=== PATIENT | male | born 1950 | race Caucasian/White ===

== ENCOUNTER 2020-09-06 21:35 | Emergency (ER) | payer MEDICARE, OTHER ==
[2020-09-06 21:46] VITALS: BP 229/120
--- NOTE | 2020-09-06 22:05 | ER Document Report ---
ED Medical Screen (RME) - General Chief Complaint: Urinary Retention Stated Complaint: UNABLE TO URINATE Time Seen by Provider: 09/06/20 21:53 Notes: HPI; 69-year-old male presents to the emergency room with urinary retention for the past 4 to 5 hours. Patient states he has had a history of retention in the past but has not had any issues for several years. Does have BPH and currently on 2 prostate medications. Denies any fevers. No nausea, no vomiting. Denies any abdominal pain. PE: Alert and oriented x3. Lungs: Clear to auscultation without rales, rhonchi, wheezes. Heart: Tachycardic without murmurs, rubs, gallops. Patient is hypertensive and tachycardic states he did take his blood pressure medications today. Charge nurse notified will be taken back as soon as possible. I have greeted and performed a rapid initial assessment of this patient. A comprehensive ED assessment and evaluation of the patient, analysis of test results and completion of the medical decision making process will be conducted by additional ED providers. I have specifically instructed the patient or family members with the patient to immediately return to any nursing staff should anything change in the patient's condition or with their chief complaint. TRAVEL OUTSIDE OF THE [place] IN LAST 30 DAYS: No - Related Data Home Medications: bp med/diuretic, proscar, flomax, Physical Exam - Vital signs Vitals: Temp Pulse Resp BP Pulse Ox 98 F 126 H 20 229/120 H 97 09/06/20 21:44 09/06/20 21:44 09/06/20 21:44 09/06/20 21:44 09/06/20 21:44 Course - Vital Signs Vital signs: Temp Pulse Resp BP Pulse Ox 98 F 126 H 20 229/120 H 97 09/06/20 21:44 09/06/20 21:44 09/06/20 21:44 09/06/20 21:44 09/06/20 21:44
--- NOTE | 2020-09-06 22:20 | ER Document Report ---
ED GI/ - General Chief Complaint: Urinary Retention Stated Complaint: UNABLE TO URINATE Time Seen by Provider: 09/06/20 21:53 Mode of Arrival: Ambulatory Information source: Patient, Relative - Notes: 09/06/20 21:54 - ED Nursing Note by GREGOR GALLOWAY Num: [id number] : 1950 Patient Age: 69 pt has hx of urinary retention x2 in the past. tonight last voided 5-6 hrs ago. pt unable to sit, bp elevated., unable to get comfortable. MY NOTES 69-year-old male arrives with his with chief complaint of having acute urinary retention for the last 5 to 6 hours. Patient reports in the past he has had to have a Goins catheter per Dr. Marquis his urologist. Also he had the same problem when they lived in [place]. Patient is a non-smoker but does drink wine and bourbon. Patient denies any diarrhea constipation chest pain diaphoresis but does admit to suprapubic pain. He denies any penile discharge or hematuria. He does admit to BPH in the past. He has had a TURP in the past according to . Attempts at Goins catheter and coud catheter were unsuccessful by [employer] switch technician. She then attempted a pediatric feeding tube 8 [place] polyurethane Kangaroo and was successful with slow drainage of urine. @1300 mls. Patient felt much improved after this. This occurred around 2320 patient sent home with condom cath surrounding the tube as well as pediatric feeding tube secured to penis. Will have patient follow-up with urologist tomorrow TRAVEL OUTSIDE OF THE [place] IN LAST 30 DAYS: No - HPI Patient complains to provider of: Goins catheter problem, Urinary retention Onset: This evening Timing/Duration: Sudden, Persistent, Worse Quality of pain: Achy Severity at maximum: Moderate Severity in ED: Moderate Pain Level: 2 - Related Data Home Medications: bp med/diuretic, proscar, flomax, Past Medical History - Social History Smoking Status: Never Smoker Cigarette use (# per day): No Chew tobacco use (# tins/day): No Smoking Education Provided: No Frequency of alcohol use: Occasional - wine and bourbon Drug Abuse: None Lives with: Family Family History: Reviewed & Not Pertinent Patient has suicidal ideation: No Patient has homicidal ideation: No Review of Systems - Review of Systems Constitutional: See HPI, Other - Acute urinary retention EENT: No symptoms reported Cardiovascular: See HPI, Palpitations Respiratory: No symptoms reported Gastrointestinal: No symptoms reported Genitourinary: See HPI, Pain Male Genitourinary: No symptoms reported Musculoskeletal: No symptoms reported Skin: No symptoms reported Hematologic/Lymphatic: No symptoms reported Neurological/Psychological: No symptoms reported Physical Exam - Vital signs Vitals: Temp Pulse Resp BP Pulse Ox 98 F 126 H 20 229/120 H 97 09/06/20 21:44 09/06/20 21:44 09/06/20 21:44 09/06/20 21:44 09/06/20 21:44 Interpretation: Hypertensive, Tachycardic - General General appearance: Appears well, Alert - HEENT Head: Normocephalic, Atraumatic Eyes: Normal Pupils: PERRL - Respiratory Respiratory status: No respiratory distress Chest status: Nontender Breath sounds: Normal Chest palpation: Normal - Cardiovascular Rhythm: Regular Heart sounds: Normal auscultation Murmur: No - Abdominal Inspection: Normal Distension: No distension Bowel sounds: Normal Tenderness: Tender - Suprapubic pain on palpation Organomegaly: No organomegaly - Rectal Tenderness: No - Genitourinary Tenderness: Nontender Cremasteric reflex: Normal Scrotum: Normal - Back Back: Normal, Nontender - Extremities General upper extremity: Normal inspection, Nontender, Normal color, Normal ROM, Normal temperature General lower extremity: Normal inspection, Nontender, Normal color, Normal ROM, Normal temperature, Normal weight bearing. No: Jessee's sign - Neurological Neuro grossly intact: Yes Cognition: Normal Orientation: AAOx4 [place] Coma Scale Eye Opening: Spontaneous [place] Coma Scale Verbal: Oriented [place] Coma Scale Motor: Obeys Commands Abner Coma Scale Total: 15 Speech: Normal Motor strength normal: LUE, RUE, LLE, RLE Sensory: Normal - Psychological Associated symptoms: Anxious - Skin Skin Temperature: Warm Skin Moisture: Dry Skin Color: Normal Course - Vital Signs Vital signs: Temp Pulse Resp BP Pulse Ox 98 F 126 H 20 229/120 H 97 09/06/20 21:44 09/06/20 21:44 09/06/20 21:44 09/06/20 21:44 09/06/20 21:44 - Laboratory Results Critical Laboratory Results Reviewed: Yes Attending or Supervising Physician who Reviewed Labs: BAREFOOT,SANJIV A JR - Radiology Results Critical Radiology Results Reviewed: No Critical Results Attending or Supervising Physician who Reviewed Radiology: SANJIV WHITE JR Discharge - Discharge Clinical Impression: Urinary retention due to benign prostatic hyperplasia Hypertension Qualifiers: Hypertension type: unspecified Qualified Code(s): I10 - Essential (primary) hypertension Clinical Impression: (Ruled Out): Tachycardia, Atrial fibrillation Condition: Stable Disposition: HOME, SELF-CARE Additional Instructions: Follow-up with urologist tomorrow return to ER if symptoms persist or worsen. Take medications as directed encourage fluids Prescriptions: Ciprofloxacin HCl [Cipro 500 mg Tablet] 500 mg PO BID #6 tablet Tamsulosin HCl [Flomax 0.4 mg Cap.sr] 0.4 mg PO DAILY #7 cap.sr.24h
[2020-09-06] MEDS ORDERED: ONDANSETRON HCL INJ/PF 4 MG/2 ML SDV IV ONE (23:03)
[2020-09-06] MEDS ORDERED: HYDROMORPHONE HCL INJ/PF 2 MG/ML AMPULE IV ONE (23:03)
[2020-09-06] MEDS ORDERED: LIDOCAINE 4%/TETRACAINE 0.5%/EPI 0.18% 5 ML TOPICAL SOLN TOP ONE (23:04)
[2020-09-06] MEDS ORDERED: LIDOCAINE 2% URO-JET 5 ML KIT MM ONE (23:07)
[2020-09-06] MEDS ORDERED: TAMSULOSIN HCL 0.4 MG CAP.SR.24H PO ONE (23:48)
[2020-09-06] MEDS ORDERED: LEVOFLOXACIN 500 MG TABLET PO ONE (23:48)
[2020-09-07] MEDS ORDERED: CIPROFLOXACIN HCL 500 MG TABLET PO ONE (00:14)
[2020-09-07 00:33] LABS: APPEARANCE,URINE CLEAR; BILIRUBIN,URINE NEGATIVE (NEGATIVE); COLOR,URINE STRAW; GLUCOSE, URINE NEGATIVE (NEGATIVE); KETONES,URINE NEGATIVE (NEGATIVE); LEUKOCYTE ESTERASE,URINE NEGATIVE (NEGATIVE); NITRITE,URINE NEGATIVE (NEGATIVE); PROTEIN,URINE 30 mg/dL (NEGATIVE); URINE SPECIFIC GRAVITY 1.011; UROBILINOGEN,URINE NEGATIVE mg/dL (<2.0)
== END 2020-09-07 00:30 | disposition home or self-care (01) ==
LOC: ER 21:35
DX: N40.1 Benign prostatic hyperplasia with lower urinary tract symptoms (principal); R33.8 Other retention of urine; R00.2 Palpitations; I10 Essential (primary) hypertension; Z90.79 Acquired absence of other genital organ(s); Z79.899 Other long term (current) drug therapy
CPT/HCPCS: 99283; 51702; 81001; A9270 ×4; J3490